=== PATIENT | female | born 1945 | race Caucasian/White ===

== ENCOUNTER 2017-06-26 11:15 | Observation (INO) ==
[2017-06-26] MEDS ORDERED: DILTIAZEM 25 MG/5 ML VIAL IV ONE ×2 (11:23→11:32)
--- NOTE | 2017-06-26 11:25 | Emergency Department Note ---
General Adult HPI - General Chief complaint: Chest Pain Stated complaint: Chest pressure and heart palpitations Time Seen by Provider: 06/26/17 11:20 Source: patient Mode of arrival: ambulatory Limitations: no limitations - History of Present Illness HPI Narrative: This patient noticed about 830 this morning onset of a tachycardia syndrome. It was associated with slight chest tightness but not significant shortness of breath. Has a history of hypertension and high cholesterol both being treated but no other history of heart disease or other abnormalities. - Related Data Home Medications Medication Instructions Recorded Confirmed Losartan [Cozaar] 50 mg PO DAILY 02/21/17 06/26/17 Pravastatin [Pravachol] 20 mg PO HS 02/21/17 06/26/17 Vitamin E 400 unit PO DAILY 02/21/17 06/26/17 Allergies Allergy/AdvReac Type Severity Reaction Status Date / Time lodine Allergy Hives Uncoded 02/21/17 16:48 Review of Systems All systems ED: reviewed and negative except as stated. Past Medical History - Past Medical History Medical history: Reports: GERD, hyperlipidemia, hypertension Surgical history ED: Reports: hysterectomy, orthopedic, other (Bilateral shoulders, bilateral knees, foot) - Social History smoking status: Never smoker Physical Exam Limitations: no limitations General appearance: alert Head: atraumatic, normocephalic Eye: Present: normal appearance ENT: normal exam Neck: Present: normal inspection Chest: Present: normal inspection Respiratory: Present: normal lung sounds bilaterally Cardiovascular: Present: tachycardia, irregular rhythm, normal heart sounds Abdominal: Present: soft. Absent: distention, tenderness Neurological: Present: alert Psychiatric: Present: normal affect, normal mood Skin: Present: warm, dry, intact Course Vital Signs Pulse Rate 122 H 06/26/17 11:15 Respiratory Rate 18 06/26/17 11:15 Blood Pressure 194/134 06/26/17 11:15 Pulse Oximetry (%) 99 06/26/17 11:15 Pulse Rate 72 06/26/17 11:45 Respiratory Rate 16 06/26/17 12:30 Blood Pressure 154/104 06/26/17 12:30 Pulse Oximetry (%) 93 06/26/17 11:45 Medical Decision Making - [facility] Narrative Medical decision making narrative: After he made the decision to admit this patient off she did convert to sinus rhythm. Her initial cardiac enzymes were negative. She will still be admitted office for rule out UT. - Lab Data Lab results reviewed: Yes I reviewed the patient's lab results. Result diagrams: 06/26/17 11:28 06/26/17 11:28 Lab Results 06/26/17 06/26/17 06/26/17 Range/Units 11:28 11:28 11:28 WBC 7.3 (4.5-11.0) K/mcL RBC 5.22 H (4.00-5.20) M/mcL Hgb 15.6 H (12.0-15.0) g/dL Hct 46.6 (36.0-48.0) % MCV 89.4 (80.0-100.0) fL MCH 29.9 (26.0-34.0) pg MCHC 33.4 (31.0-36.0) g/dL RDW 14.6 H (11.5-14.5) % Plt Count 299 (140-440) K/mcL MPV 8.0 (7.4-10.4) fL Gran % 48.3 (38.0-78.0) % Lymph % (Auto) 39.2 (15.5-49.0) % [place] % (Auto) 10.0 (1.0-12.0) % Eos % (Auto) 2.0 (0.0-7.0) % Baso % (Auto) 0.5 (0.0-2.0) % Gran # 3.5 (1.8-8.0) K/mcL Lymph # (Auto) 2.8 (1.5-4.8) K/mcL [place] # (Auto) 0.7 (0.1-0.9) K/mcL Eos # (Auto) 0.1 (0.0-0.7) K/mcL Baso # (Auto) 0 (0.0-0.3) K/mcL D-Dimer 0.51 H (0.00-0.40) ug/ml Sodium 144 (133-145) mmol/L Potassium 3.9 (3.3-5.1) mmol/L Chloride 105 (96-108) mmol/L Carbon Dioxide 25 (22-30) mmol/L Anion Gap 14.0 (8-16) BUN 16 (8-23) mg/dl Creatinine 0.9 (0.6-1.1) mg/dl GFR Calculation 64 Glucose 109 H (70-105) mg/dL Calcium 9.0 (8.6-10.4) mg/dl Total Bilirubin 0.5 (0.0-1.0) mg/dL AST 24 (0-37) U/l ALT 24 (0-40) U/l Alkaline Phosphatase 98 (39-117) U/L Troponin T (0-0.03) ng/ml Total Protein 7.1 (5.9-8.4) gm/dL Albumin 4.3 (3.2-5.2) gm/dL Globulin 2.8 (2.2-3.7) gm/dL Albumin/Globulin Ratio 1.5 (1.0-2.3) TSH 2.15 (0.27-5.01) uIU/ml 06/26/17 Range/Units 11:28 WBC (4.5-11.0) K/mcL RBC (4.00-5.20) M/mcL Hgb (12.0-15.0) g/dL Hct (36.0-48.0) % MCV (80.0-100.0) fL MCH (26.0-34.0) pg MCHC (31.0-36.0) g/dL RDW (11.5-14.5) % Plt Count (140-440) K/mcL MPV (7.4-10.4) fL Gran % (38.0-78.0) % Lymph % (Auto) (15.5-49.0) % [place] % (Auto) (1.0-12.0) % Eos % (Auto) (0.0-7.0) % Baso % (Auto) (0.0-2.0) % Gran # (1.8-8.0) K/mcL Lymph # (Auto) (1.5-4.8) K/mcL [place] # (Auto) (0.1-0.9) K/mcL Eos # (Auto) (0.0-0.7) K/mcL Baso # (Auto) (0.0-0.3) K/mcL D-Dimer (0.00-0.40) ug/ml Sodium (133-145) mmol/L Potassium (3.3-5.1) mmol/L Chloride (96-108) mmol/L Carbon Dioxide (22-30) mmol/L Anion Gap (8-16) BUN (8-23) mg/dl Creatinine (0.6-1.1) mg/dl GFR Calculation Glucose (70-105) mg/dL Calcium (8.6-10.4) mg/dl Total Bilirubin (0.0-1.0) mg/dL AST (0-37) U/l ALT (0-40) U/l Alkaline Phosphatase (39-117) U/L Troponin T < 0.01 (0-0.03) ng/ml Total Protein (5.9-8.4) gm/dL Albumin (3.2-5.2) gm/dL Globulin (2.2-3.7) gm/dL Albumin/Globulin Ratio (1.0-2.3) TSH (0.27-5.01) uIU/ml - Radiology Data Radiology results reviewed: Yes I reviewed the patient's radiology results. - EKG Data EKG #1 EKG attestation: Yes I reviewed and interpreted this EKG. EKG results narrative: No signs of acute ischemia Rate: tachycardia Rhythm: A.Fib Disposition Pt seen by FOOD EXPEDITOR/PA only: No Clinical Impression: Atrial fibrillation Disposition: Xfer As Outpt/Obs ([facility]) Condition: Good Referrals: Dora Ventura MD [Family Provider] - Time of Disposition: 12:57
[2017-06-26] MEDS ORDERED: DILTIAZEM 125 MG in DEXTROSE 5% IN WATER 100 ML IV SCH ×2 (11:30→23:30)
[2017-06-26] MEDS ORDERED: 0.9 % SODIUM CHLORIDE 1,000 ML IV SCH (11:30)
[2017-06-26] MEDS ORDERED: DILTIAZEM 125 MG/25 ML VIAL IV ONE (11:31)
[2017-06-26 12:03] LABS: Basophils # (Auto) 0 K/mcL (0.0-0.3); Basophils % (Auto) 0.5 % (0.0-2.0); Eosinophils # (Auto) 0.1 K/mcL (0.0-0.7); Granulocytes % (Auto) 48.3 % (38.0-78.0); Lymphocytes # (Auto) 2.8 K/mcL (1.5-4.8); Lymphocytes % (Auto) 39.2 % (15.5-49.0); Mean Cell Volume 89.4 fL (80.0-100.0); Mean Corpuscular HGB Conc 33.4 g/dL (31.0-36.0); Mean Corpuscular Hemoglobin 29.9 pg (26.0-34.0); Monocytes # (Auto) 0.7 K/mcL (0.1-0.9); Platelet Count 299 K/mcL (140-440); RBC 5.22 M/mcL (4.00-5.20); Red Cell Distribution Width 14.6 % (11.5-14.5)
[2017-06-26 12:38] LABS: ALT/SGPT 24 U/l (0-40); Albumin 4.3 gm/dL (3.2-5.2); Albumin/Globulin Ratio 1.5 (1.0-2.3); Alkaline Phosphatase 98 U/L (39-117); Blood Urea Nitrogen 16 mg/dl (8-23)
--- NOTE | 2017-06-26 13:12 | Internal Med History&Physical ---
Medical - H&P: HPI Patient information: Note initiated : 06/26/17 at 1:08 pm Patient: Noelle Chin 72 y/o F admitted on for Chest pressure and heart palpitations. History of present illness: Ms. Chin is a 72 year old woman with a history of hypertension, who is generally been in good health otherwise. She says about 2 days ago she was walking her dogs up a hill and noticed some slight left-sided chest pressure, which she thinks was sharp. It resolved spontaneously. She has also noticed that her blood pressure has been running higher over the last 2-3 months, in the 150/80-90 range, and had been meaning to get in touch with her doctor. This morning, after having breakfast, she says she just did not feel quite right. She had a mild headache and felt tingly. She checked her blood pressure and found that her blood pressure was higher than 140/108, and her heart rate was well above 100. So she decided to come to the emergency room for evaluation. In the ER she was found to be in A. fib with a heart rate in the 120s. She was given IV diltiazem and converted back to normal sinus rhythm. Initial troponin and EKG were normal. D-dimer was minimally elevated. Patient says the pain was in her lower left chest area, and actually says she still has some pressure there at this time, which she rates as a 2 out of 10. That has been there since early this morning. She says this morning the discomfort seemed to radiate throughout her chest, but not at this time. She denies associated shortness of breath or diaphoresis or nausea. Otherwise, she has not had recent fever or chills. She did have a cold about 2 weeks ago for which she took [id number] cold medicine, course E[place]. Her cough is essentially resolved. She denies dizziness, vision changes, new ear symptoms. She does have chronic intermittent tinnitus. She denies shortness of breath or wheezing, abdominal pain, nausea or vomiting, diarrhea or constipation, dysuria. Past medical history: Hypertension GERD Hyperlipidemia Tinnitus Surgical history : Reports: hysterectomy, orthopedic, other (Bilateral shoulders , bilateral knees, foot) Medications: Losartan 50 mg p.o. twice daily Pravastatin 20 mg daily Vitamin E 400 units daily Previous omeprazole, which she has not been taking recently AllerClear for allergy symptoms Calcium plus D6 100 mg daily Vitamin D 5000 units daily Fish oil 1400 mg daily Glucosamine 1500 mg daily Allergies: Lodine has caused rash in the past, although it may also have been related to [place]'s wort. Family history: Father had his first heart attack at age 55, and at age 61. Mother had a history of heart failure. Brother is alive and well. Her sister had rheumatoid arthritis, tobacco abuse, aortic aneurysm. Social history: The patient says she has been exposed to a lot of secondhand smoke in the earlier part of her life, but has never been a smoker. She does not drink alcohol or use drugs. She lives alone, but has a gentleman friend that spends a lot of time with her. She has a daughter and granddaughter in town. Her granddaughter, Sharif Frias, has her power of sports attorney. Medical - H&P: Meds Home Medications Medication Instructions Recorded Confirmed Type Losartan [Cozaar] 50 mg PO BID 02/21/17 06/26/17 History Pravastatin [Pravachol] 20 mg PO HS 02/21/17 06/26/17 History Vitamin E 400 unit PO DAILY 02/21/17 06/26/17 History Calcium Carbonate/Vitamin D3 600 mg PO DAILY 06/26/17 06/26/17 History [Calcium 600-Vit D3 2,500 Sftgl] Cholecalciferol (Vitamin D3) 5,000 unit PO DAILY 06/26/17 06/26/17 History [Dialyvite Vitamin D] Fish Oil 1,400 mg Softgel 1 capsule PO DAILY 06/26/17 06/26/17 History Glucosamine 1,500 mg PO DAILY 06/26/17 06/26/17 History Multivitamin,Ther and Minerals 1 tab PO DAILY 06/26/17 06/26/17 History Aspirin 81 mg PO DAILY tab.chew 06/27/17 Rx Hydrochlorothiazide [Oretic] 12.5 mg PO DAILY #30 cap 06/27/17 Rx Allergies Allergy/AdvReac Type Severity Reaction Status Date / Time NSAIDS (Non-Steroidal AdvReac Intermediate Hives Verified 06/26/17 19:34 Anti-Inflamma [place] Wort AdvReac Hives Verified 06/26/17 19:33 Medical - H&P: Exam - Constitutional Vitals: Pulse Resp BP Pulse Ox 57 L 15 178/89 98 06/26/17 12:55 06/26/17 13:03 06/26/17 13:03 06/26/17 12:55 Heart Rate is ranging from 57-122. Blood pressure ranges from 144/84-194/134 Patient is a well-developed well-nourished female, and is in no acute distress. Head: Normocephalic, atraumatic. Eyes: PERRLA, EOMI, anicteric. Ears: TMs and canals are clear. Pharynx: Appears normal, with good dentition, normal mucosa. Neck: Is supple, without bruits, thyromegaly, lymphadenopathy, JVD. Cardiac exam: Shows regular rate and rhythm with normal S1 and S2, without murmurs, rubs, gallops. Lungs: Are clear to auscultation, without rales, rhonchi, wheezes. Abdomen: Is soft, without masses. No bruits are detected. There is no guarding or rebound. Bowel sounds are active. Extremities: Show no cyanosis, clubbing, edema. Pulses are intact. Neurologic exam: Is grossly nonfocal. Medical - H&P: Reslt - Labs CBC & Chem 7: 06/27/17 03:40 06/27/17 03:40 Labs: Short CBC 06/26/17 Range/Units 11:28 WBC 7.3 (4.5-11.0) K/mcL Hgb 15.6 H (12.0-15.0) g/dL Hct 46.6 (36.0-48.0) % Plt Count 299 (140-440) K/mcL BMP 06/26/17 11:28 Sodium 144 Potassium 3.9 Chloride 105 Carbon Dioxide 25 BUN 16 Creatinine 0.9 Glucose 109 H Calcium 9.0 Cardiac Enzymes 06/26/17 Range/Units 11:28 Troponin T < 0.01 (0-0.03) ng/ml Liver Function 06/26/17 Range/Units 11:28 Total Bilirubin 0.5 (0.0-1.0) mg/dL AST 24 (0-37) U/l ALT 24 (0-40) U/l Alkaline Phosphatase 98 (39-117) U/L Albumin 4.3 (3.2-5.2) gm/dL June 26: D-dimer is elevated at 0.51 TSH is normal at 2.15 Troponin is less than 0.01 Chest x-ray: EKG: #1, 11:11 AM: Atrial fibrillation at a rate of about 120. Slow R-wave progression, borderline low voltage. EKG #2: 12:49 PM: Shows normal sinus rhythm at a rate of about 60, with borderline left axis deviation, slow R-wave progression, no acute ST-T changes. Medical - H&P: A/P (1) Chest pain at rest Current visit: Yes Status: Acute (2) Hypertension Current visit: Yes Status: Chronic (3) Hyperlipidemia Current visit: Yes Status: Chronic (4) GERD (gastroesophageal reflux disease) Current visit: Yes Status: Chronic (5) Atrial fibrillation Current visit: Yes Status: Acute - Narrative A/P Narrative: #1. Cardiac. Patient presents with chest discomfort and tachycardia, and is diagnosed with new onset atrial fibrillation. She converted back to sinus after a short course of diltiazem in the emergency room. -Admit to telemetry for further monitoring. -Check echocardiogram. -D-dimer is borderline elevated, so she develops further chest pain or shortness of breath, consider CT angiogram . -Check serial troponins and EKG. -Patient believes she has baseline bradycardia, so may not tolerate rate control drugs. -Add baby aspirin to her regimen If she rules out, and all other tests look fine, consider outpatient stress test. 2. Hypertension. -Continue losartan. If blood pressures remain elevated, I will probably add hydrochlorothiazide, as it sounds like she did not tolerate rate control drugs in the past. 3. GI. History of GERD. Patient reports she is asymptomatic and no longer takes omeprazole. 4. CODE STATUS: Full code for initial treatment, but she would not want to be on any prolonged life support. Her granddaughter Sharif has her POA. 5. DVT prophylaxis: Subcu Lovenox. Approximately 60 minutes was spent today, reviewing the patient's case with the ER MD, interviewing and examining her, reviewing plan of care with her and her significant other, and writing orders.
[2017-06-26] MEDS ORDERED: MAGNESIUM HYDROXIDE 30 ML ORAL.SUSP PO PRN (14:37)
[2017-06-26] MEDS ORDERED: ACETAMINOPHEN 325 MG TABLET PO PRN (14:37)
[2017-06-26] MEDS ORDERED: NALOXONE HCL 0.4 MG/ML VIAL IV PRN (14:37)
[2017-06-26] MEDS ORDERED: DOCUSATE SODIUM 100 MG CAPSULE PO PRN (14:37)
[2017-06-26] MEDS ORDERED: ONDANSETRON 4 MG/2 ML VIAL IV PRN (14:37)
[2017-06-26] MEDS ORDERED: NITROGLYCERIN 0.4 MG TAB.SUBL SL ONE ×2 (16:03→16:11)
--- NOTE | 2017-06-26 18:02 | XRay Report ---
CLINICAL INFORMATION: Atrial fibrillation COMPARISON: 03/15/2012 FINDINGS: Mild cardiomegaly is unchanged. Mediastinum and pulmonary vessels are normal. The lungs are clear. No effusions. Bones and soft tissues are normal. IMPRESSION: Mild cardiomegaly - stable Interpreted and Authenticated by: Gildardo Merchant 06/26/17
[2017-06-26] MEDS ORDERED: SIMVASTATIN 10 MG TABLET PO SCH (21:00)
[2017-06-26] MEDS: LOSARTAN 50 MG TABLET PO SCH (21:51)
[2017-06-27 04:52] LABS: Basophils # (Auto) 0.1 K/mcL (0.0-0.3); Basophils % (Auto) 0.9 % (0.0-2.0); Eosinophils # (Auto) 0.2 K/mcL (0.0-0.7); Eosinophils % (Auto) 2.4 % (0.0-7.0); Granulocytes % (Auto) 44.2 % (38.0-78.0); Lymphocytes # (Auto) 3.1 K/mcL (1.5-4.8); Lymphocytes % (Auto) 43.2 % (15.5-49.0); Mean Cell Volume 89.3 fL (80.0-100.0); Mean Corpuscular HGB Conc 33.5 g/dL (31.0-36.0); Mean Corpuscular Hemoglobin 29.9 pg (26.0-34.0); Monocytes # (Auto) 0.7 K/mcL (0.1-0.9); Monocytes % (Auto) 9.3 % (1.0-12.0); Platelet Count 274 K/mcL (140-440); RBC 4.69 M/mcL (4.00-5.20); Red Cell Distribution Width 14.7 % (11.5-14.5)
[2017-06-27 05:05] LABS: ALT/SGPT 21 U/l (0-40); Albumin 3.7 gm/dL (3.2-5.2); Albumin/Globulin Ratio 1.5 (1.0-2.3); Alkaline Phosphatase 71 U/L (39-117); Bilirubin,Direct < 0.2 mg/dL (0.0-0.3); Blood Urea Nitrogen 14 mg/dl (8-23); Gamma Glutamyl Transpeptidase 19 U/L (5-36); Magnesium 2.1 mg/dL (1.6-2.5); Uric Acid 3.9 mg/dL (2.5-8.0)
[2017-06-27] MEDS: LOSARTAN 50 MG TABLET PO SCH (07:03)
[2017-06-27] MEDS ORDERED: ASPIRIN 81 MG TAB.CHEW PO SCH (09:00)
[2017-06-27] MEDS ORDERED: HYDROCHLOROTHIAZIDE 12.5 MG CAPSULE PO SCH (09:00)
[2017-06-27] MEDS ORDERED: ENOXAPARIN 40 MG/0.4 ML SYRINGE SQ SCH (09:00)
[2017-06-27] MEDS ORDERED: LOSARTAN 50 MG TABLET PO SCH (09:00)
--- NOTE | 2017-06-27 10:24 | Discharge Summary ---
Medical - DS: Prov Patient information: Note initiated : 06/27/17 at 10:24 am Service Date, if different from initiated Date: [] Patient: Noelle Chin 72 y/o F admitted on 06/26/17 for Chest pressure and heart palpitations. Chief Complaint: [] Date of admission: 06/26/17 14:11 Discharge date: 06/27/17 Primary care physician: Roxy Concepcion Cardiology: Dr. Wagner Admitting clinician: Margaret Núñez Attending physician on discharge: Margaret Núñez Medical - DS: Meds - Discharge Medications Prescriptions: Hydrochlorothiazide [Oretic] 12.5 mg PO DAILY #30 cap Active and Home Medications: Discharge medications: Aspirin 81 mg a day HCTZ 12.5 mg daily for blood pressure Losartan 50 mg p.o. twice daily Pravastatin 20 mg p.o. nightly Continue home [id number] supplements, as below Previous home Medications: Losartan [Cozaar] 50 mg PO BID 02/21/17 [History Confirmed 06/26/17 Last Taken 06/26/17 08:00] Pravastatin [Pravachol] 20 mg PO HS 02/21/17 [History Confirmed 06/26/17 Last Taken 06/25/17 19:00] Vitamin E 400 unit PO DAILY 02/21/17 [History Confirmed 06/26/17 Last Taken 10/08 08:00] Calcium Carbonate/Vitamin D3 [Calcium 600-Vit D3 2,500 Sftgl] 600 mg PO DAILY [History Confirmed 06/26/17 Last Taken 06/26/17 08:00] Cholecalciferol (Vitamin D3) [Dialyvite Vitamin D] 5,000 unit PO DAILY 06/26/17 [History Confirmed 06/26/17 Last Taken 06/26/17 08:00] Fish Oil 1,400 mg Softgel 1 capsule PO DAILY 06/26/17 [History Confirmed Last Taken 06/26/17 08:00] Glucosamine 1,500 mg PO DAILY 06/26/17 [History Confirmed 06/26/17 Last Taken 08:00] Multivitamin,Ther and Minerals 1 tab PO DAILY 06/26/17 [History Confirmed Last Taken 06/26/17 08:00] Medical - DS: Hosp Hospital course: June 26, 2017: History of present illness: Ms. Chin is a 72 year old woman with a history of hypertension, who is generally been in good health otherwise. She says about 2 days ago she was walking her dogs up a hill and noticed some slight left-sided chest pressure, which she thinks was sharp. It resolved spontaneously. She has also noticed that her blood pressure has been running higher over the last 2-3 months, in the 150/80-90 range, and had been meaning to get in touch with her doctor. This morning, after having breakfast, she says she just did not feel quite right. She had a mild headache and felt tingly. She checked her blood pressure and found that her blood pressure was higher than 140/108, and her heart rate was well above 100. So she decided to come to the emergency room for evaluation. In the ER she was found to be in A. fib with a heart rate in the 120s. She was given IV diltiazem and converted back to normal sinus rhythm. Initial troponin and EKG were normal. D-dimer was minimally elevated. Patient says the pain was in her lower left chest area, and actually says she still has some pressure there at this time, which she rates as a 2 out of 10. That has been there since early this morning. She says this morning the discomfort seemed to radiate throughout her chest, but not at this time. She denies associated shortness of breath or diaphoresis or nausea. Otherwise, she has not had recent fever or chills. She did have a cold about 2 weeks ago for which she took [id number] cold medicine, course [place]. Her cough is essentially resolved. She denies dizziness, vision changes, new ear symptoms. She does have chronic intermittent tinnitus. She denies shortness of breath or wheezing, abdominal pain, nausea or vomiting, diarrhea or constipation, dysuria. Past medical history: Hypertension GERD Hyperlipidemia Tinnitus June 27, 2017: Hospital course: Patient was admitted to telemetry. Troponins were negative 3. quality assurance monitor showed episodes of bradycardia down into the 40s, with occasional junctional appearing rhythm. The patient remained asymptomatic, and has not had further chest pain, tingling, and denies nausea or shortness of breath. She is ambulated in the tovar without problems. O2 saturation has remained near 100% on room air. Blood pressure is continue to run fairly high, so HCTZ was added to her losartan today. We contacted Dr. Choi's office of cardiology, and I believe they made her an appointment to be seen in about 2 weeks. That was the earliest available. We then contacted [facility], and they will have her come in to do a stress test next week. On exam today, the patient is sitting up in bed, smiling. Neck is supple without lymphadenopathy or JVD. Cardiac exam shows regular rate and rhythm. Lungs are clear to auscultation Abdomen is soft. Extremities show no edema. neurologic exam is nonfocal. Assessment and plan: #1. Cardiac. Patient presents with chest discomfort and tachycardia, and is diagnosed with new onset atrial fibrillation. She converted back to sinus after a short course of diltiazem in the emergency room. -Patient has ruled out for IA. She has been stable clinically. She is having some mild bradycardia arrhythmias on telemetry. She does have some risk factors for coronary disease, with her age and hypertension. She will be set up at [facility] for a nuclear stress test. She should have follow-up with her lead network architect, Dr. Wagner, within the next 2 weeks. Echocardiogram was done this morning, and results are still pending. Baby aspirin was added to her regimen, for prevention of stroke and heart attack. There was no sign of recurrent A. fib during her stay. 2. Hypertension. -Continue losartan. Blood pressures continue to run high, so HCTZ was added to her losartan. This will need follow-up with either her primary care physician or her lead network architect in the next few days preferably. 3. GI. History of GERD. Patient reports she is asymptomatic and no longer takes omeprazole. 4. CODE STATUS: Full code for initial treatment, but she would not want to be on any prolonged life support. Her granddaughter Sharif has her POA. 5. DVT prophylaxis: Subcu Lovenox was used.. Discharge diagnosis: Brief A. fib, resolved. Chest pain, IA ruled out. Severe hypertension. - Time Spent with Patient Total time spent providing and/or coordinating discharge services: Medical - DS: Exam - Constitutional Vitals: Vital Signs Temp Pulse Pulse Resp BP BP BP 06/27/17 09:21 192/97 06/27/17 07:05 98.4 F 16 191/105 06/27/17 05:49 97.5 F 59 L 16 172/106 06/27/17 04:17 97.9 F 16 183/96 06/26/17 22:35 169/99 06/26/17 22:00 98.1 F 49 L 18 169/99 06/26/17 20:07 99.1 F H 16 183/99 06/26/17 20:00 18 06/26/17 17:01 178/92 06/26/17 16:41 06/26/17 16:10 152/91 06/26/17 16:01 187/98 06/26/17 15:01 166/101 06/26/17 14:46 178/93 06/26/17 14:20 98.2 F 53 L 18 170/99 06/26/17 14:11 98.2 F 58 L 18 156/93 170/99 06/26/17 14:00 58 L 15 156/93 06/26/17 13:59 57 L 12 06/26/17 13:45 53 L 15 162/89 06/26/17 13:30 55 L 16 152/93 06/26/17 13:16 58 L 16 158/87 06/26/17 13:03 15 178/89 06/26/17 12:55 57 L 12 178/97 06/26/17 12:45 72 12 158/104 06/26/17 12:30 16 154/104 06/26/17 12:15 15 162/98 06/26/17 12:00 17 158/101 06/26/17 11:55 13 166/98 06/26/17 11:45 72 14 164/105 06/26/17 11:31 15 144/84 06/26/17 11:23 59 L 21 187/130 06/26/17 11:15 122 H 18 194/134 Pulse Ox 06/27/17 09:21 06/27/17 07:05 97 06/27/17 05:49 06/27/17 04:17 96 06/26/17 22:35 98 06/26/17 22:00 99 06/26/17 20:07 97 06/26/17 20:00 06/26/17 17:01 97 06/26/17 16:41 98 06/26/17 16:10 96 06/26/17 16:01 98 06/26/17 15:01 06/26/17 14:46 06/26/17 14:20 98 06/26/17 14:11 98 06/26/17 14:00 97 06/26/17 13:59 97 06/26/17 13:45 97 06/26/17 13:30 96 06/26/17 13:16 97 06/26/17 13:03 06/26/17 12:55 98 06/26/17 12:45 94 06/26/17 12:30 06/26/17 12:15 06/26/17 12:00 06/26/17 11:55 06/26/17 11:45 93 06/26/17 11:31 06/26/17 11:23 98 06/26/17 11:15 99 Intake and Output 06/26/17 06/27/17 06/27/17 21:59 05:59 13:59 Intake Total 1500 / 1500 360 / 360 760 / 760 Output Total 1175 / 1175 550 / 550 400 / 400 Balance 325 / 325 -190 / -190 360 / 360 Intake: IV 900 / 900 Sodium Chloride 0.9% 1,000 ml @ 900 / 900 250 mls/hr IV .Q4H [facility] Rx#: [id number] Oral 600 / 600 360 / 360 760 / 760 Output: Void Amount 1175 / 1175 550 / 550 400 / 400 Other: Meal Dinner Breakfast Percent of Meal Consumed 100% Feeding Ability Independent # Voids 1 1 1 # Bowel Movements 1 Weight 181 lb 8 oz Medical - DS: Data Labs on day of discharge: Labs from last 24 hours 06/27/17 06/27/17 06/27/17 03:40 03:40 01:00 WBC 7.2 RBC 4.69 Hgb 14.0 Hct 41.9 MCV 89.3 MCH 29.9 MCHC 33.5 RDW 14.7 H Plt Count 274 MPV 7.9 Gran % 44.2 Lymph % (Auto) 43.2 [place] % (Auto) 9.3 Eos % (Auto) 2.4 Baso % (Auto) 0.9 Gran # 3.2 Lymph # (Auto) 3.1 [place] # (Auto) 0.7 Eos # (Auto) 0.2 Baso # (Auto) 0.1 D-Dimer Sodium 142 Potassium 4.0 Chloride 105 Carbon Dioxide 24 Anion Gap 13.0 BUN 14 Creatinine 0.8 GFR Calculation 74 Glucose 96 Uric Acid 3.9 Calcium 8.7 Phosphorus 3.6 Magnesium 2.1 Total Bilirubin 0.6 Direct Bilirubin < 0.2 GGT 19 AST 22 ALT 21 Alkaline Phosphatase 71 Lactate Dehydrogenase 162 Troponin T < 0.01 Total Protein 6.2 Albumin 3.7 Globulin 2.5 Albumin/Globulin Ratio 1.5 Triglycerides 89 TSH 06/26/17 06/26/17 06/26/17 17:03 11:28 11:28 WBC RBC Hgb Hct MCV MCH MCHC RDW Plt Count MPV Gran % Lymph % (Auto) [place] % (Auto) Eos % (Auto) Baso % (Auto) Gran # Lymph # (Auto) [place] # (Auto) Eos # (Auto) Baso # (Auto) D-Dimer Sodium 144 Potassium 3.9 Chloride 105 Carbon Dioxide 25 Anion Gap 14.0 BUN 16 Creatinine 0.9 GFR Calculation 64 Glucose 109 H Uric Acid Calcium 9.0 Phosphorus Magnesium Total Bilirubin 0.5 Direct Bilirubin GGT AST 24 ALT 24 Alkaline Phosphatase 98 Lactate Dehydrogenase Troponin T < 0.01 < 0.01 Total Protein 7.1 Albumin 4.3 Globulin 2.8 Albumin/Globulin Ratio 1.5 Triglycerides TSH 2.15 06/26/17 06/26/17 11:28 11:28 WBC 7.3 RBC 5.22 H Hgb 15.6 H Hct 46.6 MCV 89.4 MCH 29.9 MCHC 33.4 RDW 14.6 H Plt Count 299 MPV 8.0 Gran % 48.3 Lymph % (Auto) 39.2 [place] % (Auto) 10.0 Eos % (Auto) 2.0 Baso % (Auto) 0.5 Gran # 3.5 Lymph # (Auto) 2.8 [place] # (Auto) 0.7 Eos # (Auto) 0.1 Baso # (Auto) 0 D-Dimer 0.51 H Sodium Potassium Chloride Carbon Dioxide Anion Gap BUN Creatinine GFR Calculation Glucose Uric Acid Calcium Phosphorus Magnesium Total Bilirubin Direct Bilirubin GGT AST ALT Alkaline Phosphatase Lactate Dehydrogenase Troponin T Total Protein Albumin Globulin Albumin/Globulin Ratio Triglycerides TSH June 27: Echocardiogram: Report is pending June 26: D-dimer is elevated at 0.51 TSH is normal at 2.15 Troponin is less than 0.01 Chest x-ray: Shows mild cardiomegaly, unchanged from February 2012. Otherwise no acute disease. EKG: #1, 11:11 AM: Atrial fibrillation at a rate of about 120. Slow R-wave progression, borderline low voltage. EKG #2: 12:49 PM: Shows normal sinus rhythm at a rate of about 60, with borderline left axis deviation, slow R-wave progression, no acute ST-T changes. Medical - DS: A/P - Patient/Caregiver Discharge Instructions Activity: increase activity as tolerated Diet: Low Sodium (2gm) Additional Instructions: #1. Cardiac. You presented with atrial fibrillation and elevated blood pressure. The cardiac arrhythmia has resolved. Your tests were negative for heart attack. However, you do have some risk factors. -Please report to [facility] for your stress test, as scheduled. -Please make a follow-up appointment with your cardiology office, Dr. Wagner. -Please check in with your primary care physician sometime this week, to have your blood pressure rechecked. HCTZ was added to her medications to try to get your blood pressures to come down. You are not given a beta-león because your pulse has been too slow. You are scheduled for a Cardiac Stress Test at [facility]'s Radiology Department on Tuesday, July 06, check in at Outpatient Registration at the [facility] at 9:30 AM. Do not eat anything after Midnight, No Caffeine 24 hours prior to procedure. Discharge medications: Aspirin 81 mg a day HCTZ 12.5 mg daily for blood pressure Losartan 50 mg p.o. twice daily Pravastatin 20 mg p.o. nightly Continue home [id number] supplements, as below Previous home Medications: Losartan [Cozaar] 50 mg PO BID 02/21/17 [History Confirmed 06/26/17 Last Taken 06/26/17 08:00] Pravastatin [Pravachol] 20 mg PO HS 02/21/17 [History Confirmed 06/26/17 Last Taken 06/25/17 19:00] Vitamin E 400 unit PO DAILY 02/21/17 [History Confirmed 06/26/17 Last Taken 10/08 08:00] Calcium Carbonate/Vitamin D3 [Calcium 600-Vit D3 2,500 Sftgl] 600 mg PO DAILY [History Confirmed 06/26/17 Last Taken 06/26/17 08:00] Cholecalciferol (Vitamin D3) [Dialyvite Vitamin D] 5,000 unit PO DAILY 06/26/17 [History Confirmed 06/26/17 Last Taken 06/26/17 08:00] Fish Oil 1,400 mg Softgel 1 capsule PO DAILY 06/26/17 [History Confirmed Last Taken 06/26/17 08:00] Glucosamine 1,500 mg PO DAILY 06/26/17 [History Confirmed 06/26/17 Last Taken 08:00] Multivitamin,Ther and Minerals 1 tab PO DAILY 06/26/17 [History Confirmed Last Taken 06/26/17 08:00] Prescriptions: Hydrochlorothiazide [Oretic] 12.5 mg PO DAILY #30 cap - Problem Maintenance (1) Chest pain at rest Status: Acute (2) Hypertension Status: Chronic (3) Hyperlipidemia Status: Chronic (4) GERD (gastroesophageal reflux disease) Status: Chronic (5) Atrial fibrillation Status: Acute - Follow up Plan Follow up with: Roxy Concepcion ARNP [Primary Care Provider] - 07/01/17 3:50 pm Fredi Wagner [Physician] - (Dr. Wagner office will contact you to schedule an appointment after reviewing your chart.) Disposition: Home, Self-Care Prognosis: Good Rehab Potential: Good Overall status at discharge: patient is progressing back to baseline Medical - DS: Qual - VTE Deep Vein Thrombosis/Pulmonary Embolism Present on Admission: No
[2017-06-27] MEDS ORDERED: DILTIAZEM 125 MG in DEXTROSE 5% IN WATER 100 ML IV PRN (14:00)
== END 2017-06-27 13:25 | disposition home or self-care (01) ==
LOC: SUPCPDRO → ED 11:15 → ICU 11:15
PROVIDERS: ADMIT Internal Medicine; ATTEND Internal Medicine